=== PATIENT | female | born 1945 | race Caucasian/White ===

== ENCOUNTER 2023-04-20 14:45 | Inpatient (IN) | payer MEDICARE ==
[~2023-04-20] VITALS: Ht 170.2 cm; Wt 67.6 kg
[2023-04-20] MEDS ORDERED: CHOL200026 PO (15:34)
[2023-04-20] MEDS ORDERED: CYAN-26 SL (15:34)
[2023-04-20] MEDS ORDERED: MAGN250T2 PO (15:34)
[2023-04-20] MEDS ORDERED: CYCL10TA9 PO (15:34)
[2023-04-20] MEDS ORDERED: GABA-532 PO (15:34)
[2023-04-20] MEDS ORDERED: MULT-225 PO (15:34)
[2023-04-20] MEDS ORDERED: AMLO5TAB4 PO (15:34)
[2023-04-20] MEDS ORDERED: ACETAMINOPHEN 325 MG TABLET PO ONE (16:15)
[2023-04-20] MEDS ORDERED: ACETAMINOPHEN 325 MG TABLET ONE (16:15)
[2023-04-20] MEDS ORDERED: DIAZ5TAB PO (21:46)
[2023-04-20] MEDS ORDERED: ESCI5TAB PO (21:46)
[2023-04-20 22:15] VITALS: BP 147/62; TEMP 97.6; O2SAT 97
[2023-04-20] MEDS ORDERED: LORAZEPAM 1 MG TABLET PO PRN (23:30)
[2023-04-20] MEDS ORDERED: MAGNESIUM HYDROXIDE 30 ML LIQUID UDC PO PRN (23:30)
[2023-04-20] MEDS ORDERED: MAG HYDROX/AL HYDROX/SIMETH 30 ML LIQUID UDC PO PRN (23:30)
[2023-04-20] MEDS: ACETAMINOPHEN 325 MG TABLET PO PRN (23:54)
[2023-04-21] MEDS: ZOLPIDEM 5 MG TABLET PO PRN (01:54)
[2023-04-21 07:44] VITALS: BP 145/63; TEMP 97.8; O2SAT 98
[2023-04-21] MEDS: AMLODIPINE 5 MG TABLET PO SCH (08:17)
[2023-04-21] MEDS: MULTIVITAMINS,THERAPEUTIC TABLET PO SCH (08:17)
[2023-04-21] MEDS: PREGABALIN 25 MG CAPSULE PO SCH ×2 (08:18→16:13)
[2023-04-21] MEDS: CHOLECALCIFEROL 1,000 UNIT TABLET PO SCH (08:18)
[2023-04-21] MEDS ORDERED: LORAZEPAM 1 MG TABLET PO PRN (09:00)
[2023-04-21] MEDS: VENLAFAXINE XR 37.5 MG CAP.SR.24H PO SCH ×2 (09:00→09:19)
[2023-04-21] MEDS: GABAPENTIN 100 MG CAPSULE PO SCH ×5 (09:00→21:11)
[2023-04-21 09:47] LABS: BASOPHILS % (AUTO) 0.4 % (0.0-2.0); EOSINOPHILS % (AUTO) 0.5 % (0.0-7.0); HEMATOCRIT 42.6 % (31.2-41.9); HEMOGLOBIN 14.2 g/dL (10.9-14.3); LYMPHOCYTES # (AUTO) 1.1 K/uL (0.8-4.8); MEAN CORPUSCULAR HEMOGLOBIN 29.7 uug (24.7-32.8); MEAN CORPUSCULAR HGB CONC 33 g/dL (32.3-35.6); MEAN CORPUSCULAR VOLUME 88.9 fL (75.5-95.3); MONOCYTES # (AUTO) 0.4 K/uL (0.1-1.30); MONOCYTES % (AUTO) 5.2 % (0.0-11.0); NEUTROPHILS % (AUTO) 80.9 % (38.5-71.5); PLATELET COUNT (AUTO) 352 K/uL (179-408); RED CELL DISTRIBUTION WIDTH 13.5 % (12.3-17.7); WHITE BLOOD COUNT (AUTO) 8.6 K/uL (3.8-11.8)
[2023-04-21 09:57] LABS: DIFFERENTIAL COMMENT 1
[2023-04-21 10:00] LABS: ALANINE AMINOTRANSFERASE 93 U/L (14-59); ALBUMIN 3.3 g/dL (3.4-5.0); ALKALINE PHOSPHATASE 125 U/L (50-136); ASPARTATE AMINOTRANSFERASE 42 U/L (15-37); BILIRUBIN,TOTAL 0.6 mg/dL (0.2-1.0); CALCIUM 9.3 mg/dL (8.5-10.1); CARBON DIOXIDE 28 mmol/L (21-32); CHLORIDE 102 mmol/L (98-107); CREATININE 0.8 mg/dL (0.6-1.3); GLUCOSE 147 mg/dL (74-106); POTASSIUM 3.7 mmol/L (3.5-5.1); SODIUM SERUM 137 mmol/L (136-145); TOTAL PROTEIN, SERUM 6.8 g/dL (6.4-8.2); UREA NITROGEN, BLOOD 18 mg/dL (7-18)
[2023-04-21 10:11] LABS: THYROID STIMULATING HORMONE 1.588 mIU/mL (0.358-3.740)
[2023-04-21 10:36] LABS: MAGNESIUM 2.2 mg/dL (1.8-2.4); PHOSPHOROUS 3.8 mg/dL (2.5-4.9)
[2023-04-21 14:18] LABS: *BLOOD, URINE 2+ (NEGATIVE); *CLARITY,URINE CLEAR (CLEAR); *COLOR,URINE YELLOW (YELLOW); *KETONES,URINE 2+ (NEGATIVE); *PROTEIN,URINE 2+ (NEGATIVE); *UROBILINOGEN,URINE 0.2 E.U./dl (NORMAL); LEUKOCYTE ESTERASE ,URINE TRACE (NEGATIVE); NITRITE, URINE NEGATIVE (NEGATIVE); UGLUCOSE NEGATIVE (NEGATIVE)
[2023-04-21 14:34] LABS: *BILIRUBIN,URIN 1+ (NEGATIVE)
[2023-04-21 15:12] LABS: BACTERIA,URINE FEW /HPF (NONE SEEN); SQUAMOUS EPITHELIAL CELL,UR MODERATE /HPF (NONE SEEN); YEAST,URINE BUDDING YEAST /HPF (NONE SEEN)
[2023-04-21 17:13] VITALS: BP 125/58; TEMP 98; O2SAT 98
[2023-04-21 20:01] VITALS: BP 145/48; TEMP 97.4; O2SAT 97
[2023-04-21] MEDS: ATORVASTATIN 40 MG TABLET PO SCH (21:00)
[2023-04-21] MEDS: AMITRIPTYLINE HCL 10 MG TABLET PO SCH (21:00)
[2023-04-22] MEDS: ACETAMINOPHEN 325 MG TABLET PO PRN (00:03)
[2023-04-22] MEDS: ZOLPIDEM 5 MG TABLET PO PRN (00:03)
[2023-04-22 07:52] VITALS: BP 157/63; TEMP 98; O2SAT 98
[2023-04-22] MEDS: PREGABALIN 25 MG CAPSULE PO SCH ×3 (09:00→17:03)
[2023-04-22] MEDS: AMLODIPINE 5 MG TABLET PO SCH (09:39)
[2023-04-22] MEDS: VENLAFAXINE XR 37.5 MG CAP.SR.24H PO SCH (09:39)
[2023-04-22] MEDS: GABAPENTIN 100 MG CAPSULE PO SCH ×3 (09:39→17:03)
[2023-04-22] MEDS: MULTIVITAMINS,THERAPEUTIC TABLET PO SCH (09:39)
[2023-04-22] MEDS: CHOLECALCIFEROL 1,000 UNIT TABLET PO SCH (09:39)
[2023-04-22 15:02] VITALS: BP 115/55; TEMP 98; O2SAT 98
[2023-04-22 20:00] VITALS: BP 118/49; TEMP 97.7; O2SAT 98
[2023-04-22] MEDS: AMITRIPTYLINE HCL 10 MG TABLET PO SCH (20:13)
[2023-04-22] MEDS: ATORVASTATIN 40 MG TABLET PO SCH (20:20)
[2023-04-23] MEDS: ACETAMINOPHEN 325 MG TABLET PO PRN (01:49)
[2023-04-23] MEDS: ZOLPIDEM 5 MG TABLET PO PRN (01:49)
[2023-04-23 08:02] VITALS: BP 138/58; TEMP 97.8; O2SAT 98
[2023-04-23] MEDS: AMLODIPINE 5 MG TABLET PO SCH (08:56)
[2023-04-23] MEDS: VENLAFAXINE XR 37.5 MG CAP.SR.24H PO SCH (08:56)
[2023-04-23] MEDS: MULTIVITAMINS,THERAPEUTIC TABLET PO SCH (08:57)
[2023-04-23] MEDS: CHOLECALCIFEROL 1,000 UNIT TABLET PO SCH (08:57)
[2023-04-23] MEDS: GABAPENTIN 100 MG CAPSULE PO SCH ×3 (08:57→17:15)
[2023-04-23] MEDS: PREGABALIN 25 MG CAPSULE PO SCH ×2 (08:57→17:15)
[2023-04-23 20:00] VITALS: BP 114/46; TEMP 97.7; O2SAT 98
[2023-04-23] MEDS: AMITRIPTYLINE HCL 10 MG TABLET PO SCH (20:03)
[2023-04-23] MEDS: ATORVASTATIN 40 MG TABLET PO SCH (20:09)
[2023-04-24] MEDS: ACETAMINOPHEN 325 MG TABLET PO PRN ×2 (01:19→20:21)
[2023-04-24 07:53] VITALS: BP 130/56; TEMP 98.2; O2SAT 100
[2023-04-24] MEDS: PREGABALIN 25 MG CAPSULE PO SCH ×2 (08:37→16:53)
[2023-04-24] MEDS: MULTIVITAMINS,THERAPEUTIC TABLET PO SCH (08:37)
[2023-04-24] MEDS: VENLAFAXINE XR 37.5 MG CAP.SR.24H PO SCH (08:38)
[2023-04-24] MEDS: AMLODIPINE 5 MG TABLET PO SCH (08:38)
[2023-04-24] MEDS: CHOLECALCIFEROL 1,000 UNIT TABLET PO SCH (08:38)
[2023-04-24] MEDS: GABAPENTIN 100 MG CAPSULE PO SCH ×3 (08:39→16:53)
[2023-04-24 15:21] VITALS: BP 113/64; TEMP 98.2; O2SAT 98
[2023-04-24 20:00] VITALS: BP 134/48; TEMP 97.7; O2SAT 99
[2023-04-24] MEDS: AMITRIPTYLINE HCL 25 MG TABLET PO SCH (20:21)
[2023-04-24] MEDS: ATORVASTATIN 40 MG TABLET PO SCH (20:25)
[2023-04-24] MEDS ORDERED: AMITRIPTYLINE HCL 10 MG TABLET PO SCH (21:00)
[2023-04-24] MEDS ORDERED: LORAZEPAM 1 MG TABLET PO PRN (23:45)
[2023-04-24] MEDS ORDERED: MAGNESIUM HYDROXIDE 30 ML LIQUID UDC PO PRN (23:45)
[2023-04-24] MEDS ORDERED: ZOLPIDEM 5 MG TABLET PO PRN (23:45)
[2023-04-24] MEDS ORDERED: ACETAMINOPHEN 325 MG TABLET PO PRN (23:45)
[2023-04-24] MEDS ORDERED: BLOOD SUGAR DIAGNOSTIC 1 EACH STRIP VI ONE (23:45)
[2023-04-24] MEDS ORDERED: MAG HYDROX/AL HYDROX/SIMETH 30 ML LIQUID UDC PO PRN (23:45)
[2023-04-25] MEDS ORDERED: ZOLPIDEM 5 MG TABLET PO PRN (00:45)
[2023-04-25] MEDS ORDERED: ACETAMINOPHEN 325 MG TABLET PO PRN (00:45)
[2023-04-25 07:49] VITALS: BP 124/67; TEMP 98; O2SAT 98
[2023-04-25] MEDS: PREGABALIN 25 MG CAPSULE PO SCH ×2 (08:53→16:32)
[2023-04-25] MEDS: CHOLECALCIFEROL 1,000 UNIT TABLET PO SCH (08:53)
[2023-04-25] MEDS: MULTIVITAMINS,THERAPEUTIC TABLET PO SCH (08:53)
[2023-04-25] MEDS: GABAPENTIN 100 MG CAPSULE PO SCH ×3 (08:53→16:32)
[2023-04-25] MEDS: VENLAFAXINE XR 37.5 MG CAP.SR.24H PO SCH (08:53)
[2023-04-25] MEDS: AMLODIPINE 5 MG TABLET PO SCH (08:54)
[2023-04-25 15:50] VITALS: BP 118/62; TEMP 98; O2SAT 98
[2023-04-25 19:45] VITALS: BP 120/59; TEMP 98; O2SAT 99
[2023-04-25] MEDS: ATORVASTATIN 40 MG TABLET PO SCH (20:35)
[2023-04-25] MEDS: AMITRIPTYLINE HCL 25 MG TABLET PO SCH (20:35)
[2023-04-26 07:54] VITALS: BP 156/61; TEMP 98.2; O2SAT 97
[2023-04-26] MEDS: CHOLECALCIFEROL 1,000 UNIT TABLET PO SCH (09:42)
[2023-04-26] MEDS: MULTIVITAMINS,THERAPEUTIC TABLET PO SCH (09:42)
[2023-04-26] MEDS: GABAPENTIN 100 MG CAPSULE PO SCH (09:42)
[2023-04-26] MEDS: PREGABALIN 25 MG CAPSULE PO SCH (09:42)
[2023-04-26] MEDS: AMLODIPINE 5 MG TABLET PO SCH (09:43)
[2023-04-26] MEDS: VENLAFAXINE XR 37.5 MG CAP.SR.24H PO SCH (09:44)
[2023-04-26 12:00] VITALS: BP 110/63; TEMP 98.2; O2SAT 99
== END 2023-04-26 12:15 | disposition home or self-care (01) | DRG 885 ==
LOC: ER 14:52 → GPS 21:45
PROVIDERS: ADMIT Psychiatry & Neurology Psychiatry; ATTEND Nurse Practitioner Family
DX: F33.2 Major depressive disorder, recurrent severe without psychotic features (principal); G62.9 Polyneuropathy, unspecified; U09.9 Post COVID-19 condition, unspecified; I10 Essential (primary) hypertension; Z96.642 Presence of left artificial hip joint; Z90.710 Acquired absence of both cervix and uterus; Z79.899 Other long term (current) drug therapy; F41.9 Anxiety disorder, unspecified; Z87.440 Personal history of urinary (tract) infections
CPT/HCPCS: 71045; 83735; 84100; 84443; 85025; 93005; A4606; A4663